=== PATIENT | male | born 1950 | race Caucasian/White ===

== ENCOUNTER 2017-06-24 21:51 | Emergency (ER) | payer OTHER, MEDICARE ==
[~2017-06-24] VITALS: Ht 182.9 cm; Wt 106.0 kg
[~2017-06-24 21:51] MED LIST: APIX5TAB PO; BUME2TAB PO; CARV12.52 PO; LOSA100T PO; MULTTAB67 PO; OSCA200T PO; PRED20 PO; SUCR1TAB PO; TAMS0.4C4 PO; [UNRECOGNIZED DRUG - CODE] PO
[2017-06-24 21:56] VITALS: BP 199/91; PULSE 65; RESP 18; TEMP 97.4; O2SAT 95
--- NOTE | 2017-06-24 22:08 | PD ---
HPI . Headache Chief Complaint: Headache Time Seen by Provider: 22:01 Travel History International Travel<30 days: No Contact w/Intl Traveler<30days: No Traveled to known affect area: No History of Present Illness HPI This patient presents with a chief complaint of headache. Onset was earlier today and is getting progressively worse. He now rates it 10/10. It is associated with nausea and vomiting as well as diaphoresis. He describes the pain as throbbing. No known modifying factors. 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 ?) Endocrine: No Gastrointestinal Disorders: Yes GERD: Yes Genitourinary: Yes Hiatal Hernia: No Hypertension: Yes Immune Disorder: No Implanted Vascular Access Dvce: No Musculoskeletal: Yes Neurologic: No Psychiatric: No Reproductive: No Respiratory: Yes (COPD) Radiation Therapy: Yes (HX OF RADIATION) Renal Failure: Yes (hx dialysis ) Sleep Apnea: Yes Ulcer: Yes (SUBTOTAL GASTRECTOMY AT AGE 15) ?: Not Past Surgical History Abdominal Surgery: Yes (partial gastrectomy r/t ulcers 1969 ) Cardiac Surgery: No Ear Surgery: No Endocrine Surgery: No Eye Surgery: No Genitourinary Surgery: Yes (PROSTRATE CRYOGENIC FREEZING R/T CA, ) Gynecologic Surgery: No Neurologic Surgery: No Oral Surgery: No Thoracic Surgery: No Other Surgery: Yes (prostate) Social History Alcohol Use: No Tobacco Use: No (quit 23 years ago ) Substance Use: No Allergies-Medications (Allergen,Severity, Reaction): Coded Allergies: penicillin G (Verified Allergy, Unknown, Hives, 06/24/17) Reported Meds & Prescriptions Reported Meds & Active Scripts Active Reported Losartan (Losartan Potassium) 50 Mg Tab 50 Mg PO DAILY Eliquis (Apixaban) 2.5 Mg Tab 2.5 Mg PO BID Ferrous Fumarate 324 Mg (106 Mg Iron) Tab 325 Mg PO DAILY Glucosamine & Chondroitin Cap (Glucosam/Chondr/Collagn/Hyalur) 375 Mg-300 Mg- 175 Mg-[address] (Duloxetine HCl) 60 Mg Capdr 60 Mg PO DAILY Pramipexole (Pramipexole Dihydrochloride) 0.25 Mg Tab 0.25 Mg PO DAILY Livalo (Pitavastatin) 2 Mg Tab 3 Mg PO DAILY Cyclosporine 25 Mg Cap 25 Mg PO Tamsulosin (Tamsulosin HCl) 0.4 Mg Cap 0.4 Mg HS Os-Dat Calcium + D3 (Calcium Carbonate-Cholecalciferol) 500-200 Mg-Unit Tab 1 Tab PO BID Sucralfate 1 Gm Tab 1 Gm PO QID on empty stomach Carvedilol 12.5 Mg Tab 12.5 Mg PO BID Review of Systems Except as stated in HPI: all other systems reviewed are Neg General / Constitutional: Positive: Other (Diaphoresis) HENT: Positive: Headaches Gastrointestinal: Positive: Nausea, Vomiting Physical Exam Narrative GENERAL: This patient does not look like he feels very well. SKIN: Cool and clammy. Pale. HEAD: Normocephalic. Atraumatic. No scalp tenderness. EYES: Pupils equal and round. No scleral icterus. No injection or drainage. ENT: No nasal bleeding or discharge. Mucous membranes pink and moist. NECK: Trachea midline. Full range of motion without pain. Supple. CARDIOVASCULAR: Regular rate and rhythm. Heart sounds are normal. RESPIRATORY: No accessory muscle use. Clear to auscultation. Breath sounds equal bilaterally. GASTROINTESTINAL: Abdomen soft. Nontender. Bowel sounds present. Nondistended. MUSCULOSKELETAL: No obvious deformities. NEUROLOGICAL: Awake and alert. No obvious cranial nerve deficits. Motor grossly within normal limits. Normal speech. PSYCHIATRIC: Appropriate mood and affect; insight and judgment normal. Data Data Last Documented VS Vital Signs Date Time Temp Pulse Resp B/P (MAP) Pulse Ox O2 Delivery O2 Flow Rate FiO2 06/24/17 22:32 61 18 181/80 (113) 95 06/24/17 22:32 Room Air 06/24/17 21:56 97.4 Orders Orders Complete Blood Count With Diff (06/24/17 22:04) Basic Metabolic Panel (Bmp) (06/24/17 22:04) Prothrombin Time / Inr (Pt) (06/24/17 22:04) Act Partial Throm Time (Ptt) (06/24/17 22:04) Ct Brain W/O Iv Contrast(Rout) (06/24/17 22:04) Ecg Monitoring (06/24/17 22:04) Iv Access Insert/Monitor (06/24/17 22:04) Oximetry (06/24/17 22:04) Sodium Chloride 0.9% Flush (Ns Flush) (06/24/17 22:15) Prochlorperazine Inj (Compazine Inj) (06/24/17 22:15) Diphenhydramine Inj (Benadryl Inj) (06/24/17 22:15) Troponin I (06/24/17 22:04) Electrocardiogram (06/24/17 ) Labs Laboratory Tests Test 06/24/17 22:30 White Blood Count 7.7 TH/MM3 Red Blood Count 4.16 MIL/MM3 Hemoglobin 12.0 GM/DL Hematocrit 36.7 % Mean Corpuscular Volume 88.3 FL Mean Corpuscular Hemoglobin 28.9 PG Mean Corpuscular Hemoglobin Concent 32.7 % Red Cell Distribution Width 15.4 % Platelet Count 207 TH/MM3 Mean Platelet Volume 8.7 FL Neutrophils (%) (Auto) 68.5 % Lymphocytes (%) (Auto) 16.6 % Monocytes (%) (Auto) 11.3 % Eosinophils (%) (Auto) 3.0 % Basophils (%) (Auto) 0.6 % Neutrophils # (Auto) 5.3 TH/MM3 Lymphocytes # (Auto) 1.3 TH/MM3 Monocytes # (Auto) 0.9 TH/MM3 Eosinophils # (Auto) 0.2 TH/MM3 Basophils # (Auto) 0.0 TH/MM3 CBC Comment DIFF FINAL Differential Comment Prothrombin Time 10.3 SEC Prothromb Time International Ratio 1.0 RATIO Activated Partial Thromboplast Time 28.9 SEC Blood Urea Nitrogen 21 MG/DL Creatinine 1.10 MG/DL Random Glucose 122 MG/DL Calcium Level 9.0 MG/DL Sodium Level 132 MEQ/L Potassium Level 3.7 MEQ/L Chloride Level 96 MEQ/L Carbon Dioxide Level 27.7 MEQ/L Anion Gap 8 MEQ/L Estimat Glomerular Filtration Rate 67 ML/MIN Troponin I LESS THAN 0.02 NG/ML MDM Medical Decision Making Medical Screen Exam Complete: Yes Emergency Medical Condition: Yes Medical Record Reviewed: Yes (Medical history significant for hypertension, prostate cancer, chronic kidney disease, COPD, CHF, previous PSA. He is on Eliquis.) Interpretation(s) EKG shows a sinus rhythm with no acute ischemic changes. Differential Diagnosis Differential diagnosis of headache includes but is not limited to migraine, muscle contraction headache, brain tumor, brain bleed Narrative Course This patient presents with a chief complaint of a headache. He has associated vomiting and diaphoresis. He is on Eliquis. I am concerned about an intracerebral hemorrhage. CT>>No acute intracranial abnormalities. CBC & BMP Diagram 06/24/17 22:30 Calcium Level 9.0 trop < 0.02 Patient is now sleeping. He has had no further emesis. I will discharge him to home. Critical Care Narrative Aggregate critical care time was 30 minutes. Time to perform other separately billable procedures was not included in the critical care time. My time did not include minutes spent treating any other patients simultaneously or on activities that did not directly contribute to the patient's treatment. The services I provided to this patient were to treat and/or prevent clinically significant deterioration due to headache, rule out ICH. I provided critical care services requiring my management, as noted below: Chart data review, documentation time, medication orders and management, vital sign assessments/reviewing monitor data, ordering and reviewing lab tests, ordering and interpreting/reviewing x-rays and diagnostic studies, care of the patient and discussion of the patient with the admitting physicians Diagnosis Primary Impression: Headache Qualified Codes: R51 - Headache Patient Instructions: Acute Headache (DC), General Instructions Disposition: 01 DISCHARGE HOME Condition: Stable Nani Chan MD Jun 24, 2017 22:08
[2017-06-24] MEDS ORDERED: TH GCAP (22:13)
[2017-06-24] MEDS ORDERED: OS-CTAB3 PO (22:13)
[2017-06-24] MEDS ORDERED: FERR324T8 PO (22:13)
[2017-06-24] MEDS ORDERED: PRAM0.25 PO (22:13)
[2017-06-24] MEDS ORDERED: CYCL25CA4 PO (22:13)
[2017-06-24] MEDS ORDERED: TAMS0.4C4 (22:13)
[2017-06-24] MEDS ORDERED: DULO1CAP3 PO (22:13)
[2017-06-24] MEDS ORDERED: LIVA2TAB PO (22:13)
[2017-06-24] MEDS ORDERED: APIX2.5T PO (22:14)
[2017-06-24] MEDS ORDERED: LOSA50TA PO (22:14)
[2017-06-24] MEDS ORDERED: diphenhydrAMINE HCL 50 MG/ML VIAL IVP ONE (22:15)
[2017-06-24] MEDS ORDERED: PROCHLORPERAZINE INJ 10 MG/2 ML VIAL IVP ONE (22:15)
[2017-06-24] MEDS ORDERED: SODIUM CHLORIDE 0.9% FLUSH 10 ML FLUSH IVF PRN (22:15)
[2017-06-24 22:32] VITALS: BP 181/80; PULSE 61; RESP 18; O2SAT 95
[2017-06-24 22:34] LABS: AUTOMATED NEUTROPHIL # 5.3 TH/MM3 (1.8-7.7); BASOPHIL % 0.6 % (0.0-2.0); EOSINOPHIL # 0.2 TH/MM3 (0-0.4); HEMATOCRIT 36.7 % (39.0-51.0); LYMPH % 16.6 % (9.0-44.0); LYMPHOCYTE # 1.3 TH/MM3 (1.0-4.8); MEAN CELL VOLUME 88.3 FL (80.0-100.0); MEAN CORPUSCULAR HEMOGLOBIN 28.9 PG (27.0-34.0); MEAN CORPUSCULAR HGB CONC 32.7 % (32.0-36.0); MEAN PLATELET VOLUME 8.7 FL (7.0-11.0); MONO % 11.3 % (0.0-8.0); MONOCYTE # 0.9 TH/MM3 (0-0.9); NEUT % 68.5 % (16.0-70.0); PLATELET COUNT 207 TH/MM3 (150-450); RED BLOOD COUNT 4.16 MIL/MM3 (4.50-5.90); RED CELL DISTRIBUTION WIDTH 15.4 % (11.6-17.2); WHITE BLOOD COUNT 7.7 TH/MM3 (4.0-11.0)
--- NOTE | 2017-06-24 22:38 | RADRPT ---
EXAM DATE/TIME: 06/24/2017 22:17 [facility] COMPARISON: No previous studies available for comparison. INDICATIONS : Cephalgia. RADIATION DOSE: 58.46 CTDIvol (mGy) MEDICAL HISTORY : None SURGICAL HISTORY : None. ENCOUNTER: Initial ACUITY: 1 day PAIN SCALE: 10/10 LOCATION: Bilateral cranial TECHNIQUE: Multiple contiguous axial images were obtained of the head. Using automated exposure control and adj ustment of the mA and/or kV according to patient size, radiation dose was kept as low as reasonably a chievable to obtain optimal diagnostic quality images. DICOM format image data is available electro nically for review and comparison. FINDINGS: CEREBRUM: The ventricles are normal for age. No evidence of midline shift, mass lesion, hemorrhage or acute in farction. No extra-axial fluid collections are seen. POSTERIOR FOSSA: The cerebellum and brainstem are intact. The 4th ventricle is midline. The cerebellopontine angle i s unremarkable. EXTRACRANIAL: The visualized portion of the orbits is intact. SKULL: The calvaria is intact. No evidence of skull fracture. CONCLUSION: 1. No acute intracranial abnormalities. Berny Sanchez MD on June 24, 2017 at 22:36 Board Certified Radiologist. This report was verified electronically.
[2017-06-24 22:43] LABS: CHLORIDE 96 MEQ/L (98-107); SODIUM (NA) 132 MEQ/L (136-145)
[2017-06-24 22:46] LABS: BICARBONATE 27.7 MEQ/L (21.0-32.0); BLOOD UREA NITROGEN 21 MG/DL (7-18); GLUCOSE,RANDOM 122 MG/DL (74-106)
[2017-06-24 22:49] LABS: GLOMERULAR FILTRATION RATE 67 ML/MIN (>89); PROTHROMBIN TIME - PATIENT 10.3 SEC (9.8-11.6)
[2017-06-24 22:54] LABS: TROPONIN I LESS THAN 0.02 NG/ML (0.02-0.05)
[2017-06-24 23:15] VITALS: BP 148/62; PULSE 62; RESP 18; O2SAT 96
[2017-06-25 00:04] VITALS: BP 155/74
--- NOTE | 2017-06-25 22:17 | EKG ---
Date Performed: 06/24/2017 Time Performed: 22:34:22 PTAGE: 66 years EKG: Sinus rhythm WITH FIRST DEGREE AV BLOCK ABNORMAL ECG PREVIOUS TRACING : 08/25/2015 06.37 Since the prior tracing, there has been no significant rangel DOCTOR: Alexis Hernández Interpretating Date/Time 06/25/2017 22:16:57
== END 2017-06-25 00:10 | disposition home or self-care (01) ==
LOC: PHED 21:51
DX: R51 Headache (principal); E78.00 Pure hypercholesterolemia, unspecified; I11.0 Hypertensive heart disease with heart failure; I50.9 Heart failure, unspecified; R94.31 Abnormal electrocardiogram [ECG] [EKG]; Z87.891 Personal history of nicotine dependence
CPT/HCPCS: 70450; 80048; 84484; 85025; 85610; 85730; 93005; 96374; 96375; 99291; J0780; J1200